=== PATIENT | female | born 1960 | race Caucasian/White ===

== ENCOUNTER 2017-10-27 05:55 | Inpatient (IN) | payer OTHER ==
[2017-10-21 11:09] VITALS: BMI 23.6
[2017-10-27] MEDS ORDERED: SUCCINYLCHOLINE CHLORIDE 200 MG/10 ML VIAL ONE (07:14)
[2017-10-27] MEDS ORDERED: MIDAZOLAM HCL 2 MG/2 ML SINGLE DOSE VIAL ONE ×2 (07:14→07:23)
[2017-10-27] MEDS ORDERED: ROCURONIUM BROMIDE 50 MG/5 ML VIAL ONE (07:14)
[2017-10-27] MEDS ORDERED: PROPOFOL 20 ML ONE ×10 (07:14→11:08)
[2017-10-27] MEDS ORDERED: fentaNYL CITRATE 250 MCG/5 ML VIAL ONE (07:14)
[2017-10-27] MEDS ORDERED: DEXAMETHASONE SOD PHOSPHATE 4 MG/1 ML VIAL ONE (07:16)
[2017-10-27] MEDS ORDERED: ONDANSETRON 4 MG/2 ML VIAL ONE ×2 (07:16→12:46)
[2017-10-27] MEDS ORDERED: LIDOCAINE HCL/PF 2% SDV 5ML VIAL ONE (07:16)
[2017-10-27] MEDS ORDERED: THROMBIN (BOVINE) 5,000 UNIT VIAL TP ONE ×2 (07:20→09:49)
[2017-10-27] MEDS ORDERED: GELATIN, ABSORBABLE 100 EACH SPONGE TP ONE ×2 (07:21→09:50)
[2017-10-27] MEDS ORDERED: DEXAMETHASONE SOD PHOSPHATE/PF 10 MG/ML SDV ONE (07:23)
[2017-10-27] MEDS ORDERED: BUPIVACAINE HCL/PF (5 MG/ML) 30 ML VIAL IJ ONE ×2 (07:24→07:25)
[2017-10-27] MEDS ORDERED: BUPIVACAINE LIPOSOME/PF (EXPAREL) 266 MG/20 ML VIAL ONE (07:30)
--- NOTE | 2017-10-27 07:45 | HP ---
History & Physical Update - History History: No Change - Physical Physical: No Change - Assessment Assessment: No Change - Plan Plan: No Change (no change since visit on 09/29/17)
[2017-10-27] MEDS ORDERED: KETAMINE HCL 500 MG/10 ML VIAL ONE (07:56)
[2017-10-27] MEDS ORDERED: HYDROmorphone HCl 2 MG/ML VIAL ONE (07:56)
[2017-10-27] MEDS ORDERED: SODIUM CHLORIDE 0.9% P/F 10 ML VIAL IJ ONE (08:58)
[2017-10-27] MEDS ORDERED: LABETALOL HCL 5 MG/1 ML (100MG/20 ML VIAL) ONE (09:22)
[2017-10-27] MEDS ORDERED: ceFAZolin SODIUM 1 GM VIAL ONE (09:23)
[2017-10-27] MEDS ORDERED: ePHEDrine SULFATE 50 MG/1 ML AMPULE ONE (09:39)
[2017-10-27] MEDS ORDERED: ONDANSETRON 4 MG/2 ML VIAL IVPUSH PRN ×2 (10:14→12:47)
[2017-10-27] MEDS ORDERED: LACTATED RINGERS SOLUTION 1,000 ML IV SCH ×2 (10:15→13:00)
[2017-10-27] MEDS ORDERED: ACETAMINOPHEN 325 MG TABLET (FP) PO SCH (10:15)
[2017-10-27] MEDS ORDERED: ADENOSINE 6 MG/2 ML VIAL IVPUSH ONE (11:22)
[2017-10-27] MEDS ORDERED: GLYCOPYRROLATE 0.2 MG/1 ML VIAL ONE (12:28)
[2017-10-27] MEDS ORDERED: NEOSTIGMINE METHYLSULFATE 0.5 MG/ML - 10 ML MDV ONE (12:28)
[2017-10-27] MEDS ORDERED: oxyCODONE HCL 5 MG TABLET PO PRN ×2 (12:47)
[2017-10-27] MEDS ORDERED: ACETAMINOPHEN 1000 MG/100 ML VIAL (NON FORMULARY) IVPB PRN (12:47)
[2017-10-27] MEDS ORDERED: morphine CARPU-JECT 2 MG/1 ML DISP.SYRIN IVPUSH PRN (12:54)
[2017-10-27] MEDS ORDERED: HYDROmorphone HCL CARPU-JECT 1 MG/1 ML DISP.SYRIN IVPUSH PRN (13:01)
[2017-10-27] MEDS ORDERED: oxyCODONE HCL 5 MG TABLET ONE ×2 (13:22→18:52)
[2017-10-27] MEDS ORDERED: ACETAMINOPHEN 325 MG TABLET (FP) ONE (13:22)
--- NOTE | 2017-10-27 13:23 | OP ---
Operative Note - Note: Operative Date: 10/27/17 Pre-Operative Diagnosis: Spinal stenosis Operation: L4-L5 laminectomy/ decompression with removal of hardware L5-S1 and intrumentation/ fusion L4-S1 Post-Operative Diagnosis: Same as Pre-op Surgeon: David Olvera Horse Riding Coach Or Instructor: Fiona Snider Anesthesiologist/GASTROENTEROLOGY TECHNICIAN: Quincy Singh Anesthesia: General, Local (block) Estimated Blood Loss (mls): 50 Fluid Volume Replaced (mls): 1,000 Operative Report Dictated: Yes
--- NOTE | 2017-10-27 13:24 | SURG ---
Surgery Dairy Machine Operator Farmworker Note Dairy Machine Operator Farmworker: Fiona Snider PA-C Date of Service: 10/27/17 Diagnosis: spinal stenosis Procedure: L4-L5 laminectomy/ decompression with removal of hardware L5-S1 and intrumentation/ fusion L4-S1 I was present for the entirety of the operative procedure. For further detail, please refer to operative report. Visit type - Case Type Case Type: Scheduled - Emergency Emergency Visit: No - New patient This patient is new to me today: Yes Date on this admission: 10/27/17
[2017-10-27] MEDS: ACETAMINOPHEN 325 MG TABLET (FP) PO SCH ×2 (13:25→18:45)
[2017-10-27] MEDS: oxyCODONE HCL 5 MG TABLET PO PRN ×4 (13:25→22:51)
[2017-10-27] MEDS ORDERED: LABETALOL HCL 5 MG/1 ML (100MG/20 ML VIAL) IVPUSH ONE (13:37)
[2017-10-27] MEDS: HYDROmorphone HCL CARPU-JECT 1 MG/1 ML DISP.SYRIN IVPUSH PRN ×2 (13:43→19:03)
[2017-10-27] MEDS ORDERED: HYDROmorphone HCL 0.5 MG/0.5 ML SYRINGE ONE (13:43)
[2017-10-27] MEDS ORDERED: diazePAM 5 MG TABLET ONE (13:53)
[2017-10-27] MEDS: diazePAM 5 MG TABLET PO SCH ×2 (13:55→21:03)
[2017-10-27] MEDS ORDERED: CEFAZOLIN 1 GM/D5W 1 GM/50 ML BAG IVPB SCH (17:30)
[2017-10-27] MEDS ORDERED: HYDROmorphone HCL CARPU-JECT 2 MG/1 ML DISP.SYRIN ONE (18:55)
--- NOTE | 2017-10-27 19:02 | PN ---
Progress Note (short form) - Note Progress Note: having severe back pain no leg pain wound dressing clean NVID s/p laminectomy, extension of fusion -oob/pt -pain control -venodynes
[2017-10-27] MEDS: oxyCODONE HCL 10 MG SUSTAINED ACTING TABLET PO SCH (21:03)
[2017-10-27] MEDS: GABAPENTIN 300 MG CAPSULE (FP) PO SCH (21:03)
[2017-10-27] MEDS: VALSARTAN 160 MG TABLET (UD) PO SCH (21:03)
[2017-10-28] MEDS: ACETAMINOPHEN 325 MG TABLET (FP) PO SCH ×5 (00:50→19:00)
[2017-10-28] MEDS: oxyCODONE HCL 5 MG TABLET PO PRN ×4 (02:01→23:56)
[2017-10-28] MEDS: HYDROmorphone HCL 0.5 MG/0.5 ML SYRINGE IVPUSH PRN ×7 (02:02→23:58)
--- NOTE | 2017-10-28 06:42 | OP ---
DATE OF OPERATION: 10/27/2017 PREOPERATIVE DIAGNOSIS: 1. Lumbar spinal stenosis with neurogenic claudication. 2. Degenerative spondylolisthesis. 3. Degenerative disk disease, lumbar spine. POSTOPERATIVE DIAGNOSIS: 1. Lumbar spinal stenosis with neurogenic claudication. 2. Degenerative spondylolisthesis. 3. Degenerative disk disease, lumbar spine. PROCEDURE PERFORMED: 1. Removal of spinal hardware from L5-S1, single level lumbar arthrodesis of L4 -5. 2. Single level decompressive laminectomy at L4-5. 3. Insertion of segmental lumbar spinal instrumentation (NuVasive MAS PLIF screws, two 5.5 x 35 mm screws at L4, and one 5.5 x 40 mm screw on the left S1, and one 6.5 x 40 mm screw on the right S1, one 55 mm tanmay on the left, and one 50 mm tanmay on the right, 4 side caps). 4. Morcellized local autograft augmented with Formagraft. SURGEON: Karlee Gallagher M.D. ELECTRICAL HIGH TENSION TESTER: Fiona Snider [facility] ANESTHESIA: General. INDICATION: The patient has been suffering with severe low back pain with radiating pain down both lower extremities, progressively worsening over the past couple of years. This has been refractory to managing with multiple oral medications including narcotics as well as epidural steroid injections and physical therapy. MRI shows degeneration above the prior fusion, instability, and severe spinal stenosis. The patient has failed nonoperative treatment, is indicated for a decompression and stabilization with surgery. Risks, benefits, and alternatives of the surgery were discussed in detail with the patient, and informed consent was obtained. DESCRIPTION OF PROCEDURE: The patient is brought into the operating room by stretcher and general endotracheal anesthesia was administered by the anesthesiologist. Both lower extremities were placed with needles for intraoperative monitoring using the [employer] Neurovision system. The patient was then flipped in the prone position onto a padded Ronald frame and all bony prominences were padded. The back was then prepped and draped in the usual sterile fashion. A timeout was performed, and prophylactic IV antibiotics were administered. An incision was made overlying the prior incision. Dissection was carried down to the level of the fascia. The fascia was split with electrocautery. Subperiosteal dissection was carried down to the bony spine, exposing the prior hardware. The set caps were then removed along with the rods and followed by the removal of the screws. My plan was to place cortical screws at L4 to allow for a better screw trajectory avoiding the superior L3-4 facet joint. Anatomically, this type of screw is placed significantly more medial than the previously placed hardware. The decision was made to leave out the L5 screws from the prior fusion bilaterally to allow for easier connection of the longer tanmay across L4 to S1. The old screws were then removed, and the pedicle cowan were then checked with the probe along the S1 pedicle screws. Two new screws were then placed with excellent purchase into the pedicle at S1 bilaterally. Following insertion of the screws, the rest of the spine was instrumented as follows. The pars interarticularis bilaterally at L4 were exposed and a Midas bur was then used to place the casting agent hole under fluoroscopic guidance directed superiorly and laterally. A 4.5-mm drill was then passed using the gDecide system for monitoring. The cowan were then checked with a probe, and a 5.5-mm tap was then passed. The cowan were then rechecked, and two 5.5 x 30 mm screws were placed with excellent position and bite. The screws were then stimulated and both stimulated greater than 20 mA. A complete decompressive laminectomy of the L4 lamina was then performed with a subtotal L4 laminectomy. There was noted to be severe spinal stenosis and hypertrophic ligamentum flavum in keeping with the MRI. Distally we had to go through a significant amount of scar tissue from her prior surgery to properly decompress the dura. Excellent decompression was then performed to the pedicles bilaterally with medial fasciectomies and foraminotomies. Excellent decompression of the dura was noted without durotomy. The wounds were then copiously irrigated. The facet joints of L4-5 bilaterally were burred out using the Midas bur along with the bony fusion mass across L5-S1. The area was then packed with morcellized local autograft augmented with Formagraft. The deep fascia was closed with number 1 Vicryl suture. The deep dermal tissues were approximated with 2-0 Vicryl suture, and the skin was closed with 3-0 nylon suture. A sterile dressing was applied. ALESIA Davey, was necessary throughout the case for proper assistance in retraction of the neural elements and instrumentation of the spine. This could not have been done without a skilled surgical manager. Of note, this surgery was made significantly more difficult due to the revision nature of the surgery. The approach had to be made across previously scarred tissue including extending the laminectomy distally across scar tissue. In addition, the surgery was made more difficult by having to remove the prior hardware in order to connect the new hardware. KARLEE GALLAGHER M.D. ESTHER/[id number] MTDD
[2017-10-28 07:47] LABS: HEMOGLOBIN 10.7 GM/dl (10.7-15.3); MCH 29.3 pg (25.7-33.7); MCHC 32.5 g/dl (32.0-36.0); MEAN CELL VOLUME 90.1 fl (80-96); MEAN PLT VOLUME 9.2 fl (7.5-11.1); PLATELET COUNT 214 K/MM3 (134-434); RBC 3.66 M/mm3 (3.60-5.2); RDW 15.8 % (11.6-15.6); WHITE BLOOD COUNT 12.3 K/mm3 (4.0-10.8)
[2017-10-28 08:33] LABS: ANION GAP 7 (8-16); BLOOD UREA NITROGEN 14 mg/dl (7-18); CALCIUM 8.4 mg/dl (8.4-10.2); CHLORIDE 104 mmol/L (98-107); CO2 23 mmol/L (22-28); CREATININE 0.6 mg/dl (0.6-1.3); GLUCOSE,RANDOM 85 mg/dl (74-106); POTASSIUM 3.9 mmol/L (3.5-5.1); SODIUM 134 mmol/L (136-145)
[2017-10-28] MEDS: oxyCODONE HCL 10 MG SUSTAINED ACTING TABLET PO SCH ×2 (09:21→21:03)
[2017-10-28] MEDS: diazePAM 5 MG TABLET PO SCH ×2 (09:22→21:03)
[2017-10-28] MEDS: VALSARTAN 160 MG TABLET (UD) PO SCH ×2 (09:22→21:03)
--- NOTE | 2017-10-28 12:03 | PN ---
Progress Note (short form) - Note Progress Note: still in a lot of back pain better than last night Afeb biocclusive dressing c/d/i able to walk independently motor 5/5 poD#1 s/p laminectomy, extension of fusion with hardware removal -oob/pt -will keep 24 hrs for adequate pain control - she has been on chronic narcotic therapy prior to surgery so more difficult to manage postoperative pain after extensive surgery -will d/c tomorrow if stable
[2017-10-28] MEDS ORDERED: HYDROmorphone HCL CARPU-JECT 1 MG/1 ML DISP.SYRIN ONE ×2 (20:43→23:53)
[2017-10-28] MEDS: GABAPENTIN 300 MG CAPSULE (FP) PO SCH (21:03)
[2017-10-29] MEDS ORDERED: HYDROmorphone HCL CARPU-JECT 1 MG/1 ML DISP.SYRIN ONE ×2 (02:56→05:57)
[2017-10-29] MEDS: oxyCODONE HCL 5 MG TABLET PO PRN ×4 (03:00→18:09)
[2017-10-29] MEDS: HYDROmorphone HCL 0.5 MG/0.5 ML SYRINGE IVPUSH PRN ×5 (03:01→15:10)
[2017-10-29] MEDS: ACETAMINOPHEN 325 MG TABLET (FP) PO SCH ×3 (03:01→13:00)
[2017-10-29] MEDS: VALSARTAN 160 MG TABLET (UD) PO SCH (10:42)
[2017-10-29] MEDS: oxyCODONE HCL 10 MG SUSTAINED ACTING TABLET PO SCH (10:42)
[2017-10-29] MEDS: diazePAM 5 MG TABLET PO SCH (10:43)
[2017-10-29 14:08] VITALS: BP 151/93; PULSE 83; TEMP 98.8
--- NOTE | 2017-10-29 14:32 | PATH ---
Surgical Pathology Report Patient Name: JOIE ZHU Med. Rec. #: [id number] /Age/Gender: 1960 (Age: 57) / F Account: [id number] Location: [facility] MED-SURG Taken: 10/27/2017 Received: 10/27/2017 Reported: 10/29/2017 Physicians: David Olvera M.D. Specimen(s) Received EXPLANTED HARDWARE LUMBAR SPINE Clinical History Spinal stenosis Final Diagnosis HARDWARE, LUMBAR SPINE, EXPLANT: HARDWARE, DESCRIBED (GROSS EXAMINATION ONLY). Electronically Signed Fiona Cote M.D. Gross Description Received fresh labeled "explanted hardware lumbar spine," are 8 fisher metallic screws ranging from 0.5-5.5 cm in length. Also received within the same container are 2 fisher metallic rods averaging 3.3 cm in length. No soft tissue is present. No sections are submitted, gross only. /10/28/2017 saudi10/28/2017
--- NOTE | 2017-10-29 16:13 | PN ---
Progress Note (short form) - Note Progress Note: pt lying in bed notes persistent pain using IV pain meds still pe af vss dresings cdi LE nv exam intact calves soft nt a/p: s/p lumbar decompression and fusion -will dc iv pain meds and use oral pain meds -will work on exercises and walking -will plan for dc tomorrow
== END 2017-10-29 18:58 | disposition left against medical advice (07) | DRG 460 ==
LOC: FM/S 05:55
PROVIDERS: ADMIT Orthopaedic Surgery Orthopaedic Surgery of the Spine; ATTEND Orthopaedic Surgery Orthopaedic Surgery of the Spine
PROC: 00NY0ZZ Release Lumbar Spinal Cord, Open Approach (ICD-10-PCS; 2017-10-27)
PROC: 0SG0071 Fusion of Lumbar Vertebral Joint with Autologous Tissue Substitute, Posterior Approach, Posterior Column, Open Approach (ICD-10-PCS; 2017-10-27)
PROC: 0SP00AZ Removal of Interbody Fusion Device from Lumbar Vertebral Joint, Open Approach (ICD-10-PCS; 2017-10-27)
PROC: 0SG3071 Fusion of Lumbosacral Joint with Autologous Tissue Substitute, Posterior Approach, Posterior Column, Open Approach (ICD-10-PCS; principal; 2017-10-27 09:33)
DX: M48.062 Spinal stenosis, lumbar region with neurogenic claudication (principal); M47.9 Spondylosis, unspecified
CPT/HCPCS: 36415; 72100-TC-FY; 76000-TC-FY; 80048; 85027; 88300-TC; 94760; 97116-GP